=== PATIENT | female | born 1990 | race Two or more races ===

== ENCOUNTER 2025-04-22 13:10 | Inpatient (IN) | payer MEDICARE, SELFPAY ==
[2025-04-22 13:11] VITALS: BP 116/72; PULSE 94; RESP 17; TEMP 36.9; O2SAT 97; BMI 30.1
--- NOTE | 2025-04-22 13:27 | ED.C_ITS ---
HPI - Psych 2 General: Chief Complaint: Psychiatric Symptoms Stated Complaint: mhe Time Seen by Provider: 04/22/25 13:13 History of Present Illness: Chief complaint is hallucinations and hearing voices voices telling her to slash her wrists when she is down in hell. She states [employer] law made her have sex the other day. She states that the spirits are descending on her and she has to go to the under world. She denies any fall trauma or injury. She states she did have some alcohol today to help her with her anxiety. She is off all her medications. She denies any drug use. She has not been acting herself at this point. Denies headache chest pain trouble breathing abdominal pain vomiting diarrhea. Related Data Allergies Allergy/AdvReac Type Severity Reaction Status Date / Time codeine Allergy ALGY-Anaphy Verified 04/22/25 13:16 laxis Physical Exam 2 Narrative: EXAM NARRATIVE: Patient is alert and oriented. No bruising or external signs of trauma. Heart regular rhythm lung sounds are clear and abdomen soft nontender. Extremities warm well-perfused. No calf tenderness or pitting edema. No rash in exposed areas. Speech is clear. Conjunctiva is normal. Pupils are equal reactive to light. Full range ocular motion. No truncal ataxia. Neck is supple. Patient has disorganized thought process. She has delusions and reports hallucinations telling her to kill herself. Course 2 Vital Signs: Vital signs: Vital Signs Temperature 98.5 F 04/22/25 13:11 Pulse Rate 94 04/22/25 13:11 Respiratory Rate 17 04/22/25 13:11 Blood Pressure 116/72 04/22/25 13:11 Pulse Oximetry 97 04/22/25 13:11 Oxygen Delivery Me thod Room Air 04/22/25 13:11 MDM - Psych Medical Decision Making Patient is alert and oriented. Speech is clear. No clinical signs of intoxication. She denies any trauma injury or pain or any medical complaints. She does not think she is but is not certain. She denies drug use. She states she drinks alcohol on rare occasion and did have some for anxiety today. She is requesting admission for psychiatric help. Patient has some disorganized thought process and she states she has a history of schizophrenia and she is having delusions and she tells me she is having hallucinations that are telling her to kill herself. Plan to obtain screening psych labs including CBC CMP urine drug screen, test, alcohol level, salicylate and acetaminophen level and EKG. Plan to admit for further psychiatric evaluation and care. Patient positive for cannabinoids on urine drug screen. Alcohol level mildly elevated. Patient clinically sober. CBC CMP did not show significant abnormality otherwise. test was negative. I consulted with Dr. Sebastian who accepts the patient and patient placed on hold for suicidal ideation and active command hallucinations and delusions and psychosis. Patient clearly shows inability to care for herself and risk of self-harm. Holding order placed. Lab Data 04/22/25 13:35 04/22/25 13:35 Laboratory Results WBC 10.39 10^3/uL (3.29-11.43) 04/22/25 13:35 RBC 4.03 10^6/uL (3.85-5.65) 04/22/25 13:35 Hgb 12.90 g/dL (11.27-16.99) 04/22/25 13:35 Hct 38.7 % (36-47) 04/22/25 13:35 MCV 96.0 fl (85-98) 04/22/25 13:35 MCH 32.0 pg (27-33) 04/22/25 13:35 MCHC 33.3 g/dL (30-55) 04/22/25 13:35 RDW 13.6 % (12.1-15.1) 04/22/25 13:35 Plt Count 388 10^3/cmm (157-399) 04/22/25 13:35 MPV 8.7 fL (7.4-10.4) 04/22/25 13:35 Neut % (Auto) 43.8 % 04/22/25 13:35 Lymph % (Auto) 42.7 % 04/22/25 13:35 [place] % (Auto) 6.6 % 04/22/25 13:35 Eos % (Auto) 5.6 % 04/22/25 13:35 Baso % (Auto) 0.9 % 04/22/25 13:35 Neut # (Auto) 4.55 10^3/uL (1.8-7.7) 04/22/25 13:35 Lymph # (Auto) 4.4 10^3/uL (0.8-4.8) 04/22/25 13:35 [place] # (Auto) 0.7 10^3/uL (0.2-0.9) 04/22/25 13:35 Eos # (Auto) 0.6 10^3/uL (0.0-0.8) 04/22/25 13:35 Baso # (Auto) 0.1 10^3/uL (0.0-0.1) 04/22/25 13:35 Nucleated RBC % (auto) 0 % 04/22/25 13:35 Nucleated RBCs # 0.0 /100WBC 04/22/25 13:35 Sodium 138 mmol/L (136-145) 04/22/25 13:35 Potassium 3.6 mmol/L (3.5-5.1) 04/22/25 13:35 Chloride 105 mmol/L (98-107) 04/22/25 13:35 Carbon Dioxide 19 mmol/L (22-29) L 04/22/25 13:35 Anion Gap 17.6 (5-19) 04/22/25 13:35 BUN 9 mg/dL (6-20) 04/22/25 13:35 Creatinine 0.6 mg/dL (0.5-0.9) 04/22/25 13:35 GFR Calculation 114.4 mL/min (90-130) 04/22/25 13:35 Glucose 95 mg/dL (65-115) 04/22/25 13:35 Calculated Osmolality 284 mOsm/kg (285-295) L 04/22/25 13:35 Calcium 8.4 mg/dL (8.5-10.5) L 04/22/25 13:35 Total Bilirubin 0.2 mg/dL (0.15-1.2) 04/22/25 13:35 AST 13 U/L (0-32) 04/22/25 13:35 ALT 12 U/L (0-33) 04/22/25 13:35 Alkaline Phosphatase 70 U/L (35-105) 04/22/25 13:35 Total Protein 6.3 g/dL (6.6-8.7) L 04/22/25 13:35 Albumin 3.7 g/dL (3.5-5.2) 04/22/25 13:35 Globulin 2.6 g/dL (1.3-4.6) 04/22/25 13:35 TSH 0.40 uIU/mL (0.27-4.20) 04/22/25 13:35 HCG, Qual Negative (Negative) 04/22/25 13:19 Urine Color Yellow (Yellow) 04/22/25 13:19 Urine Appearance Cloudy (CLEAR) A 04/22/25 13:19 Urine pH 6.5 (5-7) 04/22/25 13:19 Ur Specific [place] 1.023 (1.005-1.030) 04/22/25 13:19 Urine Protein 1+ (Negative) A 04/22/25 13:19 Urine Glucose (UA) Negative (Normal) 04/22/25 13:19 Urine Ketones Trace (Negative) 04/22/25 13:19 Urine Blood 3+ (Negative) A 04/22/25 13:19 Urine Nitrate Negative (Negative) 04/22/25 13:19 Urine Bilirubin Negative (Negative) 04/22/25 13:19 Urine Urobilinogen 1.0 mg/dL (Negative) 04/22/25 13:19 Ur Leukocyte Esterase Negative (Negative) 04/22/25 13:19 Urine RBC 11-20 /hpf (0-2) H 04/22/25 13:19 Urine WBC 0-5 /hpf (0-5) 04/22/25 13:19 Ur Squamous Epith Cells 11-20 /hpf (0-5) H 04/22/25 13:19 Amorphous Sediment Not Reportable 04/22/25 13:19 Urine Bacteria 3+ /hpf (NONE) H 04/22/25 13:19 Hyaline Casts 1.21 /lpf 04/22/25 13:19 Salicylates < 0.3 mg/dL (3-10) L 04/22/25 13:35 Urine Opiates Screen Negative ng/mL (Negative) 04/22/25 13:19 Acetaminophen < 5.0 ug/mL (10-30) L 04/22/25 13:35 Ur Barbiturates Screen Negative ng/mL (Negative) 04/22/25 13:19 Ur Phencyclidine Scrn Negative ng/mL (Negative) 04/22/25 13:19 Ur Amphetamines Screen Negative ng/mL (Negative) 04/22/25 13:19 U Benzodiazepines Scrn Negative ng/mL (Negative) 04/22/25 13:19 Urine Cocaine Screen Negative ng/mL (Negative) 04/22/25 13:19 U Marijuana (THC) Screen Positive ng/mL (Negative) H 04/22/25 13:19 Ethyl Alcohol 122 mg/dL (0-10) H 04/22/25 13:35 No radiology studies performed this visit Discharge Plan Discharge Condition: Stable Print Language: Ukrainian Coding Level of Care Code ED [employer] for Jessica Delgadillo
[2025-04-22 13:41] LABS: Hematocrit 38.7 % (36-47); Hemoglobin 12.90 g/dL (11.27-16.99); Mean Corpuscular HGB Conc 33.3 g/dL (30-55); Mean Corpuscular Hemoglobin 32.0 pg (27-33); Mean Corpuscular Volume 96.0 fl (85-98); Nucleated Red Blood Cells % 0 %; Platelet Count 388 10^3/cmm (157-399); Red Blood Count 4.03 10^6/uL (3.85-5.65); White Blood Count 10.39 10^3/uL (3.29-11.43)
[2025-04-22 13:45] LABS: Glucose Urine UA Negative (Normal); Nitrate Urine Negative (Negative); Specific Gravity, Urine 1.023 (1.005-1.030)
--- NOTE | 2025-04-22 13:45 | ECG_ITS ---
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
[2025-04-22 13:46] LABS: HCG Qualitative Urine. Negative (Negative)
[2025-04-22 13:47] LABS: Add Urine Microscopic? YES
[2025-04-22 13:54] LABS: PCP Screen Urine Negative (Negative)
[2025-04-22 14:00] LABS: UA Slide Review UA Slide Review Perf
[2025-04-22 14:10] LABS: Alanine Aminotransferase 12 U/L (0-33); Albumin Level 3.7 g/dL (3.5-5.2); Alcohol Level 122 mg/dL (0-10); Alkaline Phosphatase 70 U/L (35-105); Aspartate Amino Transferase 13 U/L (0-32); Blood Urea Nitrogen 9 mg/dL (6-20); Calcium 8.4 mg/dL (8.5-10.5); Carbon Dioxide 19 mmol/L (22-29); Chloride 105 mmol/L (98-107); Creatinine Clr Calc Pharmacy 129.9033; Globulin 2.6 g/dL (1.3-4.6); Glucose 95 mg/dL (65-115); Osmolality Calculated 284 mOsm/kg (285-295); Sodium 138 mmol/L (136-145); Thyroid Stimulating Hormone 0.40 uIU/mL (0.27-4.20); Total Protein 6.3 g/dL (6.6-8.7)
[2025-04-22 14:12] LABS: Acetaminophen < 5.0 ug/mL (10-30); Salicylate < 0.3 mg/dL (3-10)
[2025-04-22 14:13] LABS: Anion Gap 17.6 (5-19); Potassium 3.6 mmol/L (3.5-5.1)
--- NOTE | 2025-04-22 16:24 | PC.NURSE ---
96 hour rights read to pt with security present at 8135. pt verbalized understanding and provided with copy of 96 hour hold rights.
[2025-04-22 17:08] VITALS: BP 136/80; PULSE 89; RESP 18; TEMP 36.6; O2SAT 99
[2025-04-22 19:55] VITALS: BP 145/96; PULSE 85; RESP 16; TEMP 36.8; O2SAT 99
[2025-04-23] VITALS: BP 98/60; PULSE 80; RESP 16; O2SAT 98
[2025-04-23 04:00] VITALS: BP 123/75; PULSE 63; RESP 16; TEMP 36.7; O2SAT 97
[2025-04-23 06:00] VITALS: BMI 30.1
[2025-04-23] MEDS: multivitamin therapeutic Tablet 1 TAB PO (07:40)
[2025-04-23 08:00] VITALS: BP 108/72; PULSE 68; RESP 18; TEMP 36.5; O2SAT 96
[2025-04-23 12:00] VITALS: BP 115/84; PULSE 61; RESP 18; TEMP 36.6; O2SAT 96
--- NOTE | 2025-04-23 13:30 | W.PM.NPUH&PS ---
Providers/Chief Complaint Admitting Physician: Fernando Sebastian MD Chief Complaint: mhe [facility] NPU History of Present Illness Clarisse Knight is a 34 year old female who presented to the emergency department with complaints that she was hearing voices telling her to cut her wrists. The patient was a poor historian unable to provide a clear history. The patient was admitted to the neuropsychiatric unit for further evaluation and treatment. She had reported hearing voices telling her to go to hell. She had stated that spirits had descended upon her and was threatening and forcing her to go into the under world. The patient had reported that she had been without her risperidone for a few weeks and needed to get back on this medication. She denied any drug use currently although her urine drug screen was positive for marijuana. The patient had reported that she had recently been living in a fpc in [facility] and had been discharged 2 weeks ago from an inpatient psychiatric unit in [facility]. She had reported that she is currently in legal trouble if she does not return to [place] as someone had passed a bad check under her name. Patient had acknowledged that she was feeling suicidal. She reported having chronic problems with paranoia and hallucinations for many years. The patient reports routine alcohol use about 6 beers a day and presented with a blood alcohol level of 122. She denied any history of alcohol withdrawal symptoms. Inpatient psychiatric history: She reports a history of multiple inpatient hospitalizations. Outpatient psychiatric history: Unknown Allergies: nkda Substance abuse history: None reported other than marijuana use and alcohol. Current medications: None Legal history: She had reported having been incarcerated in the past but current legal status is unknown. Family psychiatric history: Unknown Social history: Patient reports that she is living in the fpc in [facility]. She reports that she is currently not and has 3 children that have been adopted out to various homes. She endorses a previous history of extended periods of time being homeless. Meds NPU Home Medications ?Medication ?Instructions ?Recorded ?Confirmed ?Last Taken ?Type Unable to Assess 04/22/25 04/22/25 Unknown History Allergies Allergy/AdvReac Type Severity Reaction Status Date / Time codeine Allergy ALGY-Anaphy Verified 04/22/25 13:16 laxis Mental Status Exam MSE Comments: The patient was lying in bed appearing her stated age with a disheveled appearance and minimal eye contact. She was alert but was in and out of consciousness. Her gait was not tested. There was no evidence of any abnormal involuntary motor movements, tics, or tremors appreciated. Her speech was monotone and decreased in volume and diminished in rate. There was evidence of increased speech latency. Her mood is described as terrible. Her affect was subdued. Her thought process was derailed. Her thought content revealed suicidal ideation with thoughts of cutting her wrist. She denied any homicidal ideation. There was evidence of bizarre delusions. She did appear to be responding to internal stimuli reporting auditory hallucinations. Her attention span appeared impaired. She was alert and oriented to place but not date. Her insight was impaired. Her impulse control appeared poor. Her judgment was poor. Vitals/I&O/Wt Last Vital Signs Temp 97.9 F 04/23/25 12:00 Pulse 61 04/23/25 12:00 Resp 18 04/23/25 12:00 BP 115/84 04/23/25 12:00 Pulse Ox 96 04/23/25 12:00 O2 Del Method Room Air 04/23/25 04:00 Weight last 48 hrs Weight 77.111 kg Weight 77.111 kg Data NPU 04/22/25 13:35 04/22/25 13:35 A&P Assessment and plan (1) Unspecified psychosis: (2) Alcohol abuse: Plan 34-year-old female who presents with acute psychosis with command auditory hallucinations reporting that she has been off of her medications for several weeks currently negative for drugs of abuse other than THC and alcohol use. #1.? Engage patient in individual milieu and group therapy. #2?? Recommend sober living treatment at the highest level of care to which the patient is willing to commit #3??? CIWA for alcohol withdrawal? #4?? TO-15 minute checks? #5?? Will attempt to gather collateral information including her most recent psychiatric medication list. PDMP PDMP Reviewed: Not Reviewed Involuntary Hold Information Hold Status: Legal Status: 96 Hour Hold Date/Time Hold Expires: 04/28/25@0001 Attestations NPU Medical Necessity Statement*: Inpatient hospitalization is medically necessary and deemed to ?be ?the clinically appropriate intervention ?at this time.? We will monitor/initiate medications and make changes as indicated.? The patient will be hospitalized for at least two midnights. The patient?s likely length of stay 5-7 days. Coding Level of Care Code Acute Code for Chg Fwd Diagnoses Unspecified psychosis F29 Alcohol abuse F10.10
--- NOTE | 2025-04-23 13:51 | PC.NURSE ---
Pt. states she was told before that she had Hepatitis B and would like to know if she really does. She also asked if she could be checked for any STD's.
--- NOTE | 2025-04-23 13:53 | PC.NURSE ---
Dr. Sebastian gave verbal order to get a Hepatitis B panel.
--- NOTE | 2025-04-23 14:08 | PC.NURSE ---
Pt. is talking loudly, appears to be having a conversation with someone who is not there. Signee asked pt. if she was having hallucinations she denied, but stated she would take medications so she did not start hallucinating and stated she does have them often. Stated she was HX with Schizophrenia.
--- NOTE | 2025-04-23 14:36 | PC.NURSE ---
Pt. stated she got her medications at a [facility] in [facility]. Signee called and [facility] has no record of her filling medications there. Signee even gave the pharmacy her maiden name of Guevara.
[2025-04-23 14:43] LABS: Hepatitis B Surface Antigen Non-Reactive (Nonreactive)
--- NOTE | 2025-04-23 15:32 | PC.NURSE ---
Pt. gave another pharmacy at [facility] on [facility] [address] in [facility]. Signee called gave name CARLOS and this pharmacy said they had no record of her filling any prescriptions there.
[2025-04-23 16:00] VITALS: BP 152/50; PULSE 101; RESP 18; TEMP 36.4; O2SAT 97
[2025-04-23 20:00] VITALS: BP 109/66; PULSE 67; RESP 16; TEMP 36.6; O2SAT 97
[2025-04-24] VITALS: BP 104/70; PULSE 60; RESP 16; O2SAT 98
[2025-04-24 04:00] VITALS: BP 124/69; PULSE 60; RESP 16; TEMP 36.6; O2SAT 97
[2025-04-24 08:00] VITALS: BP 128/73; PULSE 64; RESP 18; TEMP 36.7; O2SAT 98
[2025-04-24] MEDS: multivitamin therapeutic Tablet 1 TAB PO (10:16)
[2025-04-24 12:00] VITALS: BP 114/63; PULSE 62; RESP 18; TEMP 36.9; O2SAT 98
[2025-04-24 16:00] VITALS: BP 134/90; PULSE 69; RESP 18; TEMP 36.4; O2SAT 98
--- NOTE | 2025-04-24 18:07 | P.NPUPN_ITS ---
Subjective NPU 2 Subjective: 34-year-old female admitted with psychos is with disorganized behavior and complaints of auditory hallucinations. The patient had continued to appear distracted having conversations with herself in her room for extended periods of time. She had later come out of her room and requested being placed back on Adderall XR and Klonopin. Research was done to investigate her previous medications and it appeared that she had filled Adderall and Klonopin last approximately 3 weeks ago. Her urine drug screen was negative for stimulants or benzodiazepines. She had required significant redirection on the unit. She had struggled with completion of activities of daily living. She had reported previously that Abilify had been helpful for her hallucinations. She had also endorsed a past history of PTSD. Mental Status Exam 2 MSE Comments: The patient was lying in bed appearing her stated age with a disheveled appearance and minimal eye contact. Her gait was not tested. There was no evidence of any abnormal involuntary motor movements, tics, or tremors appreciated. Her speech was monotone and more productive in volume and diminished in rate. There was evidence of increased speech latency. Her mood is described as okay. Her affect was odd and subdued. Her thought process showed evidence of derailment. Her thought content showed no evidence of suicidal ideation. She denied any homicidal ideation. There was evidence of bizarre delusions. She did appear to be responding to internal stimuli reporting auditory hallucinations. Her attention span appeared impaired. She was alert and oriented to place but not date. Her insight was impaired. Her impulse control appeared poor. Her judgment was poor. Vitals/I&O/Wt Last Vital Signs Temp 97.6 F 04/24/25 16:00 Pulse 69 04/24/25 16:00 Resp 18 04/24/25 16:00 BP 134/90 04/24/25 16:00 Pulse Ox 98 04/24/25 16:00 O2 Del Method Room Air 04/24/25 04:00 Weight last 48 hrs Weight 77.111 kg Data NPU 04/22/25 13:35 04/22/25 13:35 A&P Assessment and plan (1) Unspecified psychosis: (2) Alcohol abuse: Plan 34-year-old female who presents with acute psychosis with command auditory hallucinations reporting that she has been off of her medications for several weeks currently negative for drugs of abuse other than THC and alcohol use. #1.? Engage patient in individual milieu and group therapy. #2?? Recommend sober living treatment at the highest level of care to which the patient is willing to commit #3??? CIWA for alcohol withdrawal? #4?? TO-15 minute checks? #5?? Restart abilify currently at 15mg daily to target psychosis. PDMP PDMP Reviewed: Not Reviewed Involuntary Hold Information 2 Hold Status: Legal Status: 96 Hour Hold Date/Time Hold Expires: 04/28/15@ 00:01 Attestations NPU 2 Medical Necessity Statement*: Inpatient hospitalization is medically necessary and deemed to ?be ?the clinically appropriate intervention ?at this time.? We will monitor/initiate medications and make changes as indicated.? The patient?s likely length of stay 5-7 days. Coding Level of Care Code Acute Code for Chg Fwd Diagnoses Unspecified psychosis F29 Alcohol abuse F10.10
[2025-04-24 20:00] VITALS: BP 97/64; PULSE 70; RESP 16; TEMP 36.7; O2SAT 95
[2025-04-25] VITALS (7 sets, daily range): BP systolic 108–126; BP diastolic 67–76; PULSE 65–82; RESP 16–17; TEMP 36.5–36.6; O2SAT 95–98
[2025-04-25] MEDS: multivitamin therapeutic Tablet 1 TAB PO (08:19)
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
== END 2025-04-25 15:48 | disposition home or self-care (01) | DRG 885 ==
LOC: ER 14:10 → NP 15:57
PROVIDERS: Admitting Provider Psychiatry & Neurology Psychiatry; Emergency Provider Emergency Medicine; Visit Provider Psychiatry & Neurology Psychiatry
DX: F29 Unspecified psychosis not due to a substance or known physiological condition (principal); R45.851 Suicidal ideations; F10.10 Alcohol abuse, uncomplicated; T50.906A Underdosing of unspecified drugs, medicaments and biological substances, initial encounter
CPT/HCPCS: 80053; 80306; 80307; 81001; 81025; 84443; 85025; 86705; 86706; 87340; 93005; 93010; 97150; 97165; 99285; J9999; Q0162